=== PATIENT | male | born 1970 | race Caucasian/White ===

== ENCOUNTER 2019-05-14 20:51 | Emergency (ER) | payer BC ==
[~2019-05-14] VITALS: Ht 185.4 cm; Wt 119.7 kg
--- NOTE | 2019-05-14 21:15 | NUR ---
PT A/OX4 , CLEAR SPEECH,SPEAKING IN COMPLETE SENTENCES,NO NEURO DEFICIT NOTED. PT C/O DENTAL PAIN RELATED TO L UPPER JAW TOOTH ABSCESS SINCE LAST SATURDAY.
[2019-05-14 21:19] VITALS: BP 154/95
== END 2019-05-14 21:21 | disposition home or self-care (01) ==
LOC: ER 20:51
DX: K04.7 Periapical abscess without sinus (principal)
CPT/HCPCS: A4663